=== PATIENT | male | born 1975 | race Caucasian/White ===

== ENCOUNTER 2018-01-29 16:24 | Emergency (ER) | payer SELFPAY ==
[~2018-01-29 16:24] MED LIST: Sodium Chloride 0.9% 1,000 ML BAG ONE
[2018-01-29] MEDS ORDERED: Lorazepam 2 MG/ML VIAL ONE (16:52)
[2018-01-29 16:53] LABS: PTT 27.5 SEC (22.9-36.1); Prothrombin Time 13.4 SEC (12.0-14.7)
[2018-01-29] MEDS ORDERED: Aspirin 325 MG TAB ONE (16:53)
[2018-01-29 16:55] LABS: #Basophils 0.1 thou/uL (0.0-0.2); #Eosinphils 0.2 thou/uL (0.0-0.7); #Lymphocytes 2.1 thou/uL (1.20-3.40); #Monocytes 0.6 thou/uL (0.11-0.59); #Neutrophils 4.2 thou/uL (1.40-6.50); %Basophils 1.6 % (0.0-1.0); %Eosinophils 2.9 % (0.0-10.0); %Lymphocytes 29.2 % (21.0-51.0); %Monocytes 7.8 % (0.0-10.0); %Neutrophils 58.5 % (42.0-75.0); Hemoglobin 13.5 g/dL (14.0-18.0); Mean Corpuscular HGB CONC 34.4 g/dL (32.0-36.0); Mean Corpuscular Hemoglobin 32.5 pg (27.0-31.0); Mean Corpuscular Volume 94.3 fl (80.0-94.0); Mean Platelet Volume 5.4 fL (7.4-10.4); Platelet Count 283 thou/uL (130-400); RBC Distribution Width 11.7 % (11.5-14.5); Red Blood Cell (RBC) Count 4.15 mill/uL (4.70-6.10); White Blood Cell (WBC) Count 7.1 thou/uL (4.8-10.8)
--- NOTE | 2018-01-29 17:05 | RAD ---
CHEST ONE VIEW: 01/29/18 HISTORY: Chest pain. COMPARISON: None. FINDINGS: The lungs are clear. No pneumothorax or effusion. The cardiac silhouette and mediastinal contours are within normal limits. IMPRESSION: No acute intrathoracic abnormality. POS: [id number]
[2018-01-29 17:07] LABS: Troponin I Less than 0.010 ng/mL (< 0.028)
[2018-01-29 17:08] LABS: Acetaminophen Less than 6.0 mcg/mL (6.0-30.0); Alcohol Less than 10 mg/dL (Less than 10)
[2018-01-29 17:09] LABS: Anion Gap 14 mmol/L (10-20); BUN (Urea Nitrogen) 8 mg/dL (8.9-20.6); CKMB 1.2 ng/mL (0-6.6); Calc. Creatinine Clearance 0 mL/min (70-130); Carbon Dioxide 25 mmol/L (22-29); Chloride 105 mmol/L (98-107); Estimated GFR-MDRD Greater than 90; Potassium 3.7 mmol/L (3.5-5.1); Salicylate Less than 8.0 mg/dL (15.0-30.0); Sodium 140 mmol/L (136-145)
[2018-01-29 17:10] LABS: Bilirubin, Total 0.4 mg/dL (0.2-1.2); Calcium 8.3 mg/dL (7.8-10.44); Glucose 104 mg/dL (70-105); Protein, Total 6.3 g/dL (6.0-8.3)
[2018-01-29 17:11] LABS: AST (SGOT) 15 U/L (5-34); Albumin 3.7 g/dL (3.5-5.0); Alkaline Phosphatase 45 U/L (40-150); CK (CPK) 89 U/L (30-200); Globulin 2.6 g/dL (2.4-3.5)
[2018-01-29 17:12] LABS: ALT (SGPT) 13 U/L (8-55)
== END 2018-01-29 18:50 | disposition home or self-care (01) ==
LOC: MADERS 16:24
DX: E86.0 Dehydration (principal); F17.210 Nicotine dependence, cigarettes, uncomplicated
CPT/HCPCS: 71045; 80053; 80307; 82553; 83735; 83880; 84484; 85025; 85610; 85730; 93005; 94760; 96361; 96374; J2060; J7050